=== PATIENT | female | born 1940 | race Caucasian/White ===

== ENCOUNTER → 2018-12-01 | Outpatient (CLI) | payer MEDICARE, OTHER ==
[~2018-12-01] MED LIST: ASCO250CH PO; ASCO500; ASPI81CH PO; ATOR10; CALTRATE 600 +1 EACH; CETAPHIL DAILY; Cipro500 MG PO; DIAZ5; ESOM20; ESTR1; FISH1000 PO; FOLI400 PO; LORA10ER; METO50ER PO; Multivitamin1 EAC1; NASACORT10.8 ML; OMEP20ER; ROSU10TA; ROSU10TA PO; TRIA55OI; VITAMIN D-32000 UNIT PO; Zofran4 MG PO
== END ==
LOC: LAB SHORT 08:19 → PLD 08:19
DX: D48.5 Neoplasm of uncertain behavior of skin (principal)
CPT/HCPCS: 88305

== ENCOUNTER → 2019-12-28 | Outpatient (CLI) | payer MEDICARE, OTHER | END | disposition home or self-care (01) | LOC: PLD 14:55 → LAB SHORT 14:55 | DX: D04.39 Carcinoma in situ of skin of other parts of face (principal) | CPT/HCPCS: 88305 ==

== ENCOUNTER 2021-03-22 17:20 | Emergency (ER) | payer MEDICARE, OTHER ==
[~2021-03-22] VITALS: Ht 167.6 cm; Wt 47.6 kg
[2021-03-22 17:53] LABS: BASOPHILS ABSOLUTE AUTO 0.03 K/mm3 (0.00-0.23); BASOPHILS PERCENT AUTO 0 % (0-2); EOSINOPHILS ABSOLUTE AUTO 0.25 K/mm3 (0.00-0.68); EOSINOPHILS PERCENT AUTO 3 % (0-6); Hematocrit 44.4 % (33.0-51.0); Hemoglobin 14.8 g/dL (11.5-16.0); IMMATURE GRAN ABSOLUTE AUTO 0.03 K/mm3 (0.00-0.10); IMMATURE GRAN PERCENT AUTO 0 % (0-1); LYMPHOCYTES ABSOLUTE AUTO 1.45 K/mm3 (0.84-5.20); LYMPHOCYTES PERCENT AUTO 19 % (21-46); MONOCYTES ABSOLUTE AUTO 0.77 K/mm3 (0.16-1.47); MONOCYTES PERCENT AUTO 10 % (4-13); Mean Corpuscular HGB Conc 33.3 g/dL (31.5-36.5); Mean Corpuscular Volume 90 fL (80-100); Mean Platelet Volume 8.5 fL (9.1-12.4); NEUTROPHILS ABSOLUTE AUTO 5.06 K/mm3 (1.96-9.15); NEUTROPHILS PERCENT AUTO 67 % (41-73); Platelet Count 336 K/mm3 (150-400); RDW Coefficient Variation 12.3 % (11.7-14.2); RDW Standard Deviation 40.5 fL (35.1-46.3); Red Blood Cell Count 4.93 M/mm3 (3.80-5.20); White Blood Cell Count 7.59 K/mm3 (4.00-11.30)
[2021-03-22] MEDS ORDERED: FOLI1 PO (17:53)
[2021-03-22] MEDS ORDERED: [UNRECOGNIZED DRUG - OTHER] (17:54)
[2021-03-22] MEDS ORDERED: [UNRECOGNIZED DRUG - OTHER] (17:56)
[2021-03-22] MEDS ORDERED: [UNRECOGNIZED DRUG - OTHER] (17:57)
[2021-03-22 18:15] LABS: Alanine Aminotransfer (ALT/SGP 18 U/L (12-78); Albumin, Blood 3.9 g/dL (3.4-5.0); Albumin/Globulin Ratio 1.2 (0.8-1.8); Alk Phos 66 U/L (50-136); Anion Gap 6 mmol/L (6-16); Aspartate Aminotrans (AST/SGOT 19 U/L (12-37); Bilirubin, Total 0.3 mg/dL (0.1-1.0); Blood Urea Nitrogen 21 mg/dL (8-24); Bun/Creatinine Ratio 31.6 (12.0-20.0); CO2, Blood 27 mmol/L (21-32); Calcium, Blood 9.2 mg/dL (8.5-10.1); Chloride, Blood 104 mmol/L (98-108); Creatinine, Blood 0.66 mg/dL (0.40-1.00); Globulin, Blood 3.2 g/dL (2.2-4.0); Glomerular Filtration Rate >60 (60-); Glucose, Blood 104 mg/dL (70-99); Potassium, Blood 3.8 mmol/L (3.5-5.5); Sodium, Blood 137 mmol/L (136-145); Total Protein, Blood 7.1 g/dL (6.4-8.2); Troponin I <0.015 ng/mL (0.000-0.040)
[2021-03-22] MEDS ORDERED: MECL25 PO (18:54)
== END 2021-03-22 18:10 | disposition home or self-care (01) ==
LOC: ER 17:20
PROVIDERS: Emergency Medicine
DX: R42 Dizziness and giddiness (principal); Z79.82 Long term (current) use of aspirin; Z88.5 Allergy status to narcotic agent; Z79.899 Other long term (current) drug therapy
CPT/HCPCS: 36415; 80053; 84484; 85025; 93005; 93010; 99285-25; J2550

== ENCOUNTER → 2023-06-29 | Outpatient (CLI) | payer MEDICARE, OTHER ==
[~2023-06-29] MED LIST changes: +FOLI1 PO; +MECL25 PO; +[UNRECOGNIZED DRUG - OTHER]; +[UNRECOGNIZED DRUG - OTHER]; +[UNRECOGNIZED DRUG - OTHER]
== END | disposition home or self-care (01) ==
LOC: LAB 15:16 → LAB SHORT 15:16
DX: R30.0 Dysuria (principal)
CPT/HCPCS: 87086

== ENCOUNTER 2023-12-14 21:39 | Inpatient (IN) | payer MEDICARE, OTHER, MEDICAID ==
[~2023-12-14] VITALS: Ht 172.7 cm; Wt 45.7 kg
[2023-12-14] MEDS ORDERED: Ondansetron HCl 2 MG / ML 2ML Vial IV ONE (23:35)
[2023-12-14] MEDS ORDERED: Morphine Sulfate 4 MG/1 ML Injection IV ONE (23:35)
[2023-12-14] MEDS ORDERED: FentaNYL Citrate 50 MCG/ML 2 ML Injection IV PRN (23:45)
[2023-12-14] MEDS ORDERED: Ondansetron HCl 2 MG / ML 2ML Vial IV PRN (23:50)
[2023-12-14] MEDS ORDERED: FLU VACC QS2023-24(6MOS UP)/PF 60 MCG/0.5 ML SYRINGE IM ONE (23:50)
[2023-12-15] VITALS (20 sets, daily range): BP systolic 121–162; BP diastolic 63–88
[2023-12-15 00:15] LABS: Hematocrit 41.6 % (33.0-51.0); Hemoglobin 13.7 g/dL (11.5-16.0); Mean Corpuscular HGB 30.2 pg (26.0-34.0); Mean Corpuscular HGB Conc 32.9 g/dL (31.5-36.5); Mean Corpuscular Volume 92 fL (80-100); Mean Platelet Volume 8.6 fL (9.1-12.4); Platelet Count 335 K/mm3 (150-400); RDW Coefficient Variation 12.7 % (11.7-14.2); RDW Standard Deviation 42.7 fL (35.1-46.3); Red Blood Cell Count 4.54 M/mm3 (3.80-5.20); White Blood Cell Count 7.66 K/mm3 (4.00-11.30)
[2023-12-15] MEDS ORDERED: NS 1,000 ML IV SCH (00:30)
[2023-12-15 00:32] LABS: Albumin, Blood 3.7 g/dL (3.4-5.0); Albumin/Globulin Ratio 1.1 (0.8-1.8); Bilirubin, Total 0.3 mg/dL (0.1-1.0); Bun/Creatinine Ratio 37.1 (12.0-20.0); Calcium, Blood 9.7 mg/dL (8.5-10.1); Creatinine, Blood 0.75 mg/dL (0.40-1.00); Globulin, Blood 3.3 g/dL (2.2-4.0); Potassium, Blood 4.1 mmol/L (3.5-5.5)
[2023-12-15 00:41] LABS: International Normalized Ratio 0.98; Prothrombin Time Results 10.3 Sec (9.7-11.5)
[2023-12-15 00:45] LABS: BAND PERCENT MAN 1 % (0-8); BASOPHILS ABSOLUTE MAN 0.07 K/mm3 (0.00-0.23); BASOPHILS PERCENT MAN 1 % (0-2); EOSINOPHILS PERCENT MAN 4 % (0-6); LYMPHOCYTES ABSOLUTE MAN 1.22 K/mm3 (0.84-5.20); LYMPHOCYTES PERCENT MAN 16 % (21-46); MONOCYTES ABSOLUTE MAN 0.68 K/mm3 (0.16-1.47); MONOCYTES PERCENT MAN 9 % (4-13); NEUTROPHILS ABSOLUTE MAN 5.36 K/mm3 (1.96-9.15); SEG NEUTROPHILS PERCENT MAN 69 % (41-73); TOTAL CELLS COUNTED 100
[2023-12-15] MEDS ORDERED: DONEPEZIL HCL5 M2 PO (01:24)
[2023-12-15] MEDS ORDERED: MIRTAZAPINE7.5 M1 PO (01:24)
[2023-12-15] MEDS ORDERED: CARBIDOPA-LEVO1 EA19 PO (01:25)
[2023-12-15] MEDS ORDERED: MYRBETRIQ25 MG PO (01:26)
[2023-12-15] MEDS ORDERED: PROZAC40 MG PO (01:27)
[2023-12-15] MEDS ORDERED: ARIPIPRAZOLE2 M1 PO (01:27)
--- NOTE | 2023-12-15 01:51 | NUR ---
ARRIVAL TO UNIT PT ARRIVED TO UNIT AT 0115 VIA GURNEY FROM THE ER. PT TRANSFERRED OVER TO BED VIA SLIDING SHEET. PT ABLE TO ANSWER QUESTIONS, HAS SOME CONFUSION BUT IS BASELINE. PULSE TO RLE IS STRONG. LUNG SOUNDS ARE CLEAR, RR EVEN AND UNLABORED. PT COMPLAINS OF PAIN IN THE R HIP, MEDICATED PER EMAR. PT SETTLED INTO ROOM, EDUCATED SOLID WASTE COLLECTION WORKER LIGHT. PT HAD FALLEN ASLEEP AFTER GIVING PAIN MEDICATION. NO OTHER CONCERNS AT THIS TIME. CALL LIGHT WITHIN REACH
--- NOTE | 2023-12-15 06:12 | NUR ---
SHIFT SUMMARY NO ACUTE CHANGES SINCE COMING TO THE FLOOR. PAIN MANAGED PER EMAR. PT DOESN'T USE THE CALL LIGHT. PT DOESNT CALL AT ALL. SHE FIDGETS WITH THINGS WHEN SHE IS IN PAIN. NO OTHER CONCERNS AT THIS TIME. CALL LIGHT WITHIN REACH
[2023-12-15] MEDS ORDERED: Trospium Chloride 20 MG Tab PO SCH (09:00)
[2023-12-15] MEDS ORDERED: Donepezil HCl 5 MG Tab PO SCH (09:00)
[2023-12-15] MEDS ORDERED: CARBIDOPA PO SCH (09:00)
[2023-12-15] MEDS ORDERED: LEVODOPA PO SCH (09:00)
[2023-12-15] MEDS ORDERED: FLUoxetine HCL 20 MG CAP PO SCH (09:00)
[2023-12-15] MEDS ORDERED: ARIPiprazole 2 MG Tablet PO SCH (09:00)
[2023-12-15] MEDS ORDERED: FentaNYL Citrate 50 MCG/ML 2 ML Injection ONE (11:34)
[2023-12-15] MEDS ORDERED: propofoL 20 ML IV ONE (11:34)
[2023-12-15] MEDS ORDERED: Midazolam HCl 1MG / ML 2ML Vial ONE (11:34)
[2023-12-15] MEDS ORDERED: TRANEXAMIC ACID IV SCH (12:05)
[2023-12-15] MEDS ORDERED: NS IV SCH (12:05)
[2023-12-15] MEDS ORDERED: Lactated Ringer's 1,000 ML IV SCH (12:05)
--- NOTE | 2023-12-15 12:11 | NUR ---
PATIENT TO DAYSURGERY @ 1200
[2023-12-15] MEDS ORDERED: ASPI81CH PO (12:15)
[2023-12-15] MEDS ORDERED: CeFAZolin Sodium 2,000 MG in NS 50 ML IV SCH ×2 (12:35→21:00)
[2023-12-15] MEDS ORDERED: Bupivacaine 0.5% HCl 5 MG/ML 30MLVIAL ONE (12:55)
[2023-12-15] MEDS ORDERED: Ondansetron HCl 2 MG / ML 2ML Vial ONE (13:04)
[2023-12-15] MEDS ORDERED: Ketorolac Tromethamine 30mg Vial ONE (13:04)
[2023-12-15] MEDS ORDERED: Dexamethasone Sod Phos 10 MG/ML 1ML VIAL ONE (13:04)
[2023-12-15] MEDS ORDERED: Morphine Sulfate 4 MG/1 ML Injection IV PRN (13:15)
[2023-12-15] MEDS ORDERED: FentaNYL Citrate 50 MCG/ML 2 ML Injection IV PRN (13:15)
[2023-12-15] MEDS ORDERED: Metoclopramide HCl 5MG / ML 2ML Vial IV PRN (13:20)
[2023-12-15] MEDS ORDERED: Labetalol HCL 5 MG/ML 4ML Injection (Single Dose) IV PRN (13:20)
--- NOTE | 2023-12-15 13:26 | NUR ---
12/15/23 1326 Radha Dyson PT POSTIONED ON L SIDE FOR SPINAL NERVE BLOCK UPON ENTRY TO OR. DR. RICKS PLACED SPINAL NERVE BLOCK, PT TOLERATED WELL.
--- NOTE | 2023-12-15 16:11 | NUR ---
POST-OP BACK FROM PACU @5005, R CRISTIANO. AQUACEL TO R HIP. C/D/I. POLAR ALISON IN PLACE. PATIENT IS DROWSY, BUT WAKES EASILY. FAMILY IN ROOM AT BEDSIDE. VITAL SIGNS STABLE. STRONG PEDAL PULSES. SPINAL BLOCK IN OR, LOPEZ IN PLACE AND DRAINS YELLOW CLEAR URINE. TXA INFUSED. PATIENT DENIES PAIN AT THIS TIME. CALL LIGHT IN REACH.
[2023-12-15] MEDS ORDERED: NS 250 ML IV PRN (21:20)
[2023-12-16] VITALS (7 sets, daily range): BP systolic 130–180; BP diastolic 69–81
[2023-12-16 05:37] LABS: BASOPHILS ABSOLUTE AUTO 0.03 K/mm3 (0.00-0.23); BASOPHILS PERCENT AUTO 0 % (0-2); EOSINOPHILS ABSOLUTE AUTO 0.02 K/mm3 (0.00-0.68); EOSINOPHILS PERCENT AUTO 0 % (0-6); Hematocrit 36.3 % (33.0-51.0); Hemoglobin 12.2 g/dL (11.5-16.0); IMMATURE GRAN ABSOLUTE AUTO 0.05 K/mm3 (0.00-0.10); IMMATURE GRAN PERCENT AUTO 1 % (0-1); LYMPHOCYTES PERCENT AUTO 10 % (21-46); MONOCYTES ABSOLUTE AUTO 1.25 K/mm3 (0.16-1.47); MONOCYTES PERCENT AUTO 13 % (4-13); Mean Corpuscular HGB Conc 33.6 g/dL (31.5-36.5); Mean Corpuscular Volume 92 fL (80-100); Mean Platelet Volume 8.8 fL (9.1-12.4); NEUTROPHILS ABSOLUTE AUTO 7.55 K/mm3 (1.96-9.15); NEUTROPHILS PERCENT AUTO 76 % (41-73); Platelet Count 314 K/mm3 (150-400); RDW Coefficient Variation 12.6 % (11.7-14.2); RDW Standard Deviation 42.6 fL (35.1-46.3); Red Blood Cell Count 3.94 M/mm3 (3.80-5.20)
--- NOTE | 2023-12-16 05:44 | NUR ---
SHIFT SUMMARY POD1 R CRISTIANO. SENSATION AND CIRCULATION REMAIN INTACT. VSS. PT SLEPT ON AND OFF T/O THE NIGHT. PT VERY PAINFUL T/O THE NIGHT. DOES NOT TOLLERATE CRYO AT THIS TIME. MEDICATED PER EMAR. REPOSITIONED T/O THE NIGHT. LOPEZ REMAINS PATENT. MINIMAL PO INTAKE NOTED, ENCOURAGED T/O THE NIGHT AND ASSISTED. NO ACUTE EVENTS NOTED.
[2023-12-16 06:05] LABS: Bun/Creatinine Ratio 26.2 (12.0-20.0); Calcium, Blood 8.3 mg/dL (8.5-10.1); Creatinine, Blood 0.65 mg/dL (0.40-1.00)
[2023-12-16] MEDS ORDERED: TraMADol HCl 50 MG Tab PO PRN (10:15)
--- NOTE | 2023-12-16 16:30 | NUR ---
SUMMARY PATIENT IS POD2 R HIP FX AND REPLACEMENT. AQUACEL DRESSING TO R HIP IS C/D/I. PATIENT HAS HX OF DEMENTIA AOX-2. ABLE TO FOLLOW DIRECT COMMANDS. ABLE TO PARTICIPATE WITH OT AND STAND AT EOB. TOLERATING PO INTAKE. ABLE TO TAKE PILLS IN APPLESAUCE. NEEDS ASSISTANCE WITH MEALS. LOPEZ IN PLACE DRAINING TO GRAVITY. STAT LOCK IN PLACE. BED ALARM ON FOR SAFETY. CALL LIGHT IN REACH.
[2023-12-17 03:52] VITALS: BP 159/73
[2023-12-17 04:08] LABS: BASOPHILS ABSOLUTE AUTO 0.03 K/mm3 (0.00-0.23); BASOPHILS PERCENT AUTO 0 % (0-2); EOSINOPHILS ABSOLUTE AUTO 0.08 K/mm3 (0.00-0.68); EOSINOPHILS PERCENT AUTO 1 % (0-6); Hematocrit 34.3 % (33.0-51.0); Hemoglobin 11.5 g/dL (11.5-16.0); IMMATURE GRAN ABSOLUTE AUTO 0.04 K/mm3 (0.00-0.10); IMMATURE GRAN PERCENT AUTO 0 % (0-1); LYMPHOCYTES PERCENT AUTO 7 % (21-46); MONOCYTES ABSOLUTE AUTO 1.56 K/mm3 (0.16-1.47); MONOCYTES PERCENT AUTO 14 % (4-13); Mean Corpuscular HGB 30.7 pg (26.0-34.0); Mean Corpuscular HGB Conc 33.5 g/dL (31.5-36.5); Mean Corpuscular Volume 92 fL (80-100); Mean Platelet Volume 8.8 fL (9.1-12.4); NEUTROPHILS ABSOLUTE AUTO 8.58 K/mm3 (1.96-9.15); NEUTROPHILS PERCENT AUTO 77 % (41-73); Platelet Count 295 K/mm3 (150-400); RDW Coefficient Variation 12.6 % (11.7-14.2); RDW Standard Deviation 42.2 fL (35.1-46.3); Red Blood Cell Count 3.74 M/mm3 (3.80-5.20); White Blood Cell Count 11.09 K/mm3 (4.00-11.30)
[2023-12-17 04:30] LABS: Bun/Creatinine Ratio 26.4 (12.0-20.0); Calcium, Blood 8.5 mg/dL (8.5-10.1); Creatinine, Blood 0.53 mg/dL (0.40-1.00)
--- NOTE | 2023-12-17 06:33 | NUR ---
SHIFT SUMMARY POD 2 R KIMI HIP. NO ACUTE CHANGES OVERNIGHT. VS WNL FOR PT. MINIMAL PO INTAKE, PT WOULD NOT WAKEN ENOUGH TO ACCEPT PO INTAKE T/O NIGHT, ENCOURAGE ORALS. PT ABLE TO SWALLOW CRUSHED MEDS IN APPLESAUCE. LOPEZ IN PLACE, DRAINING TO GRAVITY, NO BM OVERNIGHT. PT SLEPT T/O THE NIGHT, ABLE TO WAKEN MINIMALLY c VOCAL/TACTILE STIMULATION. NO AMBULATION OVERNIGHT. MEDICATED FOR PAIN PER EMAR, USE OF ORALS WHEN APPROPRIATE, WHEN PT UNABLE TO PEFORM SWALLOWING, IV MEDICATIONS GIVEN. BED IN LOWEST POSITION, BED ALARM ON, WILL REPORT TO DAY RN.
[2023-12-17 08:01] VITALS: BP 131/69
--- NOTE | 2023-12-17 11:14 | NUR ---
Pt. is resting. Spouse is present at bedside and welcomes my visit. Spouse is plesant. Facilitate a life review that reveals the spouse has been a care-information assurance analyst of the Pt. for a long time. As the life story is told, the spouse displayss appropriate emotion and tears. Listen with empathy and a calming presence, and pastoral care is shared. The family is gnosticism, but the spouse welcomed prayer nonetheless and joined me at bedside as we prayed for the Pt. and him. Spouse verbalized gratitude for the spiritual care support.
--- NOTE | 2023-12-17 11:32 | NUR ---
review of patient with nursing. pt minimal in reponse. Concerns from pain medication and anesthesia. 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 Will follow up with .
[2023-12-17] MEDS ORDERED: Ketorolac Tromethamine 15mg Vial IV PRN (13:30)
[2023-12-17] MEDS ORDERED: Acetaminophen 325 MG TABLET PO PRN (13:30)
[2023-12-17 14:37] VITALS: BP 132/63
--- NOTE | 2023-12-17 15:47 | NUR ---
SHIFT SUMMARY: POD 2 RIGHT KIMI HIP PATIENT HAS BEEN SOMULENT THROUGHOUT THE SHIFT. PATIENT OPENS HER EYES FOR A BRIEF MINUTE WHEN CALLED HER NAME A FEW TIMES BUT THEN PATIENT CLOSES HER EYES AND STARTS SNORING WITH EVEN/EQUAL RESPIRATIONS. HER RIGHT HIP HAS AN AQUACEL THAT IS C/D/I. PEDAL PULSES ARE STRONG AND WARM TO TOUCH. PATIENT HAS NOT HAD ANYTHING PO SO FAR THIS SHIFT. WHEN PATIENT HAS BEEN OFFERED PATIENT WAKES UP FOR A BRIEF MINUTE BUT THEN CLOSES HER EYES AND STARTS SNORING WITH EVEN/EQUAL RESPIRATIONS. LOPEZ IS DRAINING PER GRAVITY WITH SMALL AMOUNT OF AMA OUTPUT. HAS BEEN AT BEDSIDE THROUGHOUT THE DAY. PALLIATIVE CARE HAS BEEN CONSULTED TODAY AND SPOKE WITH THE ABOUT FUTURE CARE OF THE PATIENT. PATIENT CONTINUES TO LAY IN BED SNORING AND EYES CLOSED WITH EVEN/EQUAL RESPIRATIONS. CALL LIGHT WITHIN REACH AND BED ALARM ON A PRECAUTION DUE TO PATIENTS HX OF LEWY BODY DEMENTIA.
[2023-12-17 20:14] VITALS: BP 159/82
[2023-12-18 04:53] VITALS: BP 151/69
--- NOTE | 2023-12-18 08:16 | NUR ---
SHIFT SUMMARY POD 3 R KIMI HIP. NO ACUTE CHANGES OVERNIGHT. VS WNL FOR PT. PT HAS REMAINED SOMNOLENT; SHE DID NOT OPEN HER EYES WHEN STIMULATED VERBALLY. PT RESPONDS TO VERBAL/PHYSCIAL STIMULI MINIMALLY c INCOHERENT VERBAL RESPONSES. PT SLEPT T/O NIGHT, BIOX IN USE c O2 SAT MAINTAINED >95% ON RA. AQUACEL ON R HIP C/D/I. PT DID NOT INGEST PO INTAKE THIS SHIFT. LOPEZ DRAINING TO GRAVITY, OUTPUT AMA IN COLOR. ANTICIPATED COMFORT CARE FOR PT, AT BEDSIDE. GIVEN UPDATE ON PT CONDITION. BED ALARM ON R/T HX: LEWY BODY DEMENTIA. REPORT GIVEN TO DAY RN.
[2023-12-18] MEDS ORDERED: Acetaminophen 650 MG Supp PR PRN (10:00)
--- NOTE | 2023-12-18 14:42 | NUR ---
SHIFT SUMMARY: POD 3 RIGHT KIMI HIP PATIENT IS MORE RESPONSIVE THIS EVENING THAN THIS MORNING BUT IS A&OX1-2 WITH HX OF LEWY BODY DEMENTIA. BED ALARM ON A PRECAUTION BUT PATIENT IS EASILY REDIRECTED. PAIN IS MANAGED WITH PO TYLENOL GIVEN IN APPLESAUCE. LOPEZ IS DRAINING PER GRAVITY WITH A SMALL AMOUNT OF AMA URINE. PATIENTS RIGHT HIP HAS AN AQUACEL THAT IS C/D/I WITH AN ICE PACK IN PLACE TO AIDE IN DECREASING HER RIGHT HIP PAIN. PATIENT IS LAYING IN BED WITH CALL LIGHT IN REACH. AT BEDSIDE.
--- NOTE | 2023-12-18 15:00 | NUR ---
CARE ASSUMED OF PT. PT IS RESTING WITH EYES CLOSED. RESP RATE AND EFFORT EVEN AND UNLABORED. PT'S IS AT THE BEDSIDE. CALL LIGHT WITHIN REACH.
--- NOTE | 2023-12-18 17:07 | NUR ---
SHIFT SUMMARY DR. SOTO SPOKE WITH PT'S THIS EVENING REGARDING PLAN OF CARE. NO CHANGES TO REPORT SINCE CARE ASSUMED.
--- NOTE | 2023-12-18 18:07 | NUR ---
PT HAS HAD LOW INTAKE TODAY. SHE IS NOT INTERESTED IN FOOD BUT ENJOYS ENSURES WITH MEALS.
--- NOTE | 2023-12-18 19:21 | NUR ---
BEDSIDE REPORT GIVEN TO ANGY SCOTT. UPON ENTERING ROOM PT WAS HOLDING HER CATHETER IN HER HAND, IT WAS STILL INTACT. PT HAD REMOVED HER GOWN. PT WAS REPOSITIONED AND CATHETER TUBING HIDDEN. GOWN PUT BACK ON.
[2023-12-18 20:20] VITALS: BP 154/89
[2023-12-19 03:36] VITALS: BP 153/64
--- NOTE | 2023-12-19 04:35 | NUR ---
SHIFT SUMMARY PT HAS RESTED MOST OF THE NIGHT. PICKS AT GOWN, AND WAS ALSO SEEN PICKING AT SECURMENT DEVICE ON CATHETER. CATHETER IS SECURE WITH NO ISSUES NOTED AFTER PT WAS SEEN PICKING AT CATHETER. PT REPOSITIONED T/O THE SHIFT. ORAL CARE, AND CATHETER CARE DONE. VITALS ARE STABLE, NO ACUTE CHANGES IN PLAN OF CARE T/O THE SHIFT. BED IN LOWEST POSITION, CALL LIGHT WITHIN REACH.
[2023-12-19 07:23] VITALS: BP 156/75
[2023-12-19 10:52] LABS: BASOPHILS ABSOLUTE AUTO 0.03 K/mm3 (0.00-0.23); BASOPHILS PERCENT AUTO 0 % (0-2); EOSINOPHILS ABSOLUTE AUTO 0.09 K/mm3 (0.00-0.68); EOSINOPHILS PERCENT AUTO 1 % (0-6); Hematocrit 36.2 % (33.0-51.0); IMMATURE GRAN ABSOLUTE AUTO 0.03 K/mm3 (0.00-0.10); IMMATURE GRAN PERCENT AUTO 0 % (0-1); LYMPHOCYTES ABSOLUTE AUTO 0.79 K/mm3 (0.84-5.20); LYMPHOCYTES PERCENT AUTO 7 % (21-46); MONOCYTES ABSOLUTE AUTO 0.85 K/mm3 (0.16-1.47); MONOCYTES PERCENT AUTO 8 % (4-13); Mean Corpuscular HGB 30.1 pg (26.0-34.0); Mean Corpuscular HGB Conc 33.1 g/dL (31.5-36.5); Mean Corpuscular Volume 91 fL (80-100); Mean Platelet Volume 8.8 fL (9.1-12.4); NEUTROPHILS ABSOLUTE AUTO 8.82 K/mm3 (1.96-9.15); NEUTROPHILS PERCENT AUTO 83 % (41-73); Platelet Count 442 K/mm3 (150-400); RDW Coefficient Variation 12.2 % (11.7-14.2); RDW Standard Deviation 40.4 fL (35.1-46.3); Red Blood Cell Count 3.99 M/mm3 (3.80-5.20); White Blood Cell Count 10.61 K/mm3 (4.00-11.30)
[2023-12-19 11:17] LABS: Bun/Creatinine Ratio 38.4 (12.0-20.0); Calcium, Blood 8.9 mg/dL (8.5-10.1); Creatinine, Blood 0.44 mg/dL (0.40-1.00); Potassium, Blood 3.6 mmol/L (3.5-5.5)
[2023-12-19 13:46] VITALS: BP 137/65
--- NOTE | 2023-12-19 17:22 | NUR ---
SHIFT SUMMARY POD4 R HEMIHIP, BRYCEEL CDI. A&O1-2 OPENS EYES OCCASSIONALLY, PLEASANT & COOPERATIVE WITH CARE. DWAYNE PO, FULL MEAL ASSIST/ENCOURAGEMENT/LOW PO INTAKE, DYSPHAGIA PRECAUTIONS, MEDS CRUSHED/APPLESAUCE OR IN ENSURE. LOPEZ PATENT & DRAINING, STAT LOCK ON, OFF FLOOR. REPOSITIONED T/O SHIFT. PAIN MANAGED. BEDSIDE. WILL REPORT TO ONCOMING NOC RN.
[2023-12-19 20:50] VITALS: BP 153/69
[2023-12-20 05:20] VITALS: BP 145/72
[2023-12-20 07:26] VITALS: BP 150/74
--- NOTE | 2023-12-20 08:04 | NUR ---
SHIFT SUMMARY NOC. PT A/O TO SELF AND FAMILY. AQUACEL ON RIGHT HIP C/D/I. PT DENIES PAIN. LOPEZ DRAINING BELOW BLADDER LEVEL AND STAT LOCK INPLACE. BED ALARM SET FOR SAFETY, PT DID NOT ATTEMPT TO GET UP OUT OF BED. BIOX IN PLACE. PT RESTED WITH EYES CLOSED AND CALL LIGHT IN REACH.
[2023-12-20 14:10] VITALS: BP 146/69
--- NOTE | 2023-12-20 18:20 | NUR ---
SHIFT SUMMARY PATIENT IS AOX1-2, TURN Q2, RIGHT HIP DRESSING C/D/I. MEDS GIVEN WHOLE WITH ENSURE AND PUDDING. PATIENT NEEDS ASSISTANCE WITH FEEDING. HAD ONE STOOL THIS SHIFT. LOPEZ IS IN PLACE, DRAINING YELLOW URINE. BED BATH DONE TODAY. BED ALARM ON FOR SAFETY. VSS. SPOUSE IN ROOM AT THIS TIME. PLAN FOR HOSPICE DISCHARGE TOMORROW.
[2023-12-20] MEDS ORDERED: Aspirin 81 MG Chew PO SCH (21:00)
[2023-12-20 21:31] VITALS: BP 142/67
[2023-12-21 03:53] VITALS: BP 139/70
--- NOTE | 2023-12-21 04:37 | NUR ---
SHIFT SUMMARY POD6 R KIMI HIP. BRYCEEL IS C/D/I. PT SLEPT WELL T/O THE NIGHT. REPOSITIONED Q2 TOLLERATED. LOPEZ REMAINS IN PLACE, PATENT. PT DID NTO REQUIRE ANY PAIN MEDICATION T/O THE NIGHT. PT TOLLERATED SOME PO INTAKE W/ ENCOURAGEMENT. OVERALL, NO ACUTE EVENTS NOTED. PLAN TO D/C ON HOSPICE TODAY.
[2023-12-21 07:54] VITALS: BP 158/101
[2023-12-21 07:56] VITALS: BP 165/94
[2023-12-21 07:57] VITALS: BP 165/94
--- NOTE | 2023-12-21 12:55 | NUR ---
DISCHARGE SUMMARY PATIENT DISCHARGE HOME ON HOSPICE, INSTRUCTIONS PRINTED OUT AND SENT HOME WITH HER, SHE WAS PICKED UP BY EMS TO BE TAKEN HOME, HOME EQUIPMENT WAS DELIVERED AND SET UP YESTERDAY
== END 2023-12-21 12:44 | disposition hospice, home (50) | DRG 521 ==
LOC: ER 21:39 → SURS 23:44
PROVIDERS: Emergency Medicine; Internal Medicine; Orthopaedic Surgery Sports Medicine; ADMIT Internal Medicine
PROC: 0SRR01Z Replacement of Right Hip Joint, Femoral Surface with Metal Synthetic Substitute, Open Approach (ICD-10-PCS; principal; 2023-12-15 12:30)
DX: S72.001A Fracture of unspecified part of neck of right femur, initial encounter for closed fracture (principal); G93.41 Metabolic encephalopathy; Z68.1 Body mass index [BMI] 19.9 or less, adult; F02.818 Dementia in other diseases classified elsewhere, unspecified severity, with other behavioral disturbance; W18.30XA Fall on same level, unspecified, initial encounter; M19.90 Unspecified osteoarthritis, unspecified site; G43.909 Migraine, unspecified, not intractable, without status migrainosus; E78.00 Pure hypercholesterolemia, unspecified; I10 Essential (primary) hypertension; K21.9 Gastro-esophageal reflux disease without esophagitis; G31.83 Neurocognitive disorder with Lewy bodies; F32.A Depression, unspecified; G47.00 Insomnia, unspecified; G25.81 Restless legs syndrome; G20.C Parkinsonism, unspecified; Z87.891 Personal history of nicotine dependence; Z79.82 Long term (current) use of aspirin
CPT/HCPCS: 36415; 73502; 80048; 80053; 83880; 85007; 85025; 85027; 85610; 85730; 86850; 86900; 86901; 93005; 93010; 94762; 96374; 96375; 97162; 97165; 97530; 99284-25; A9270; C1776; J0690; J1100; J1885; J2250; J2270; J2405; J2704; J3010; J7030; J7050; J7120